=== PATIENT | female | born 1990 | race Caucasian/White ===

== ENCOUNTER 2019-09-09 11:01 | Emergency (ER) | payer OTHER ==
[~2019-09-09] VITALS: Ht 170.2 cm; Wt 85.7 kg
[2019-09-09 11:20] VITALS: BP 113/71
--- NOTE | 2019-09-09 12:41 | NUR ---
PT AMBULATED TO BED 12
--- NOTE | 2019-09-09 12:54 | NUR ---
29 Y/O F C/O LOWER ABDOMEN PAIN 5/10 WITH VAGINAL BLEEDING, 5-6 PADS DAY, X 3 WEEKS. PT STATES SHE HAD AN IUD PLACED X 4 WEEKS AGO, SINCE HAS BEEN EXPERIENCING BLEEDING X 3 WEEKS. PT INFORMED HER MD, ADVISED HER TO COME INTO THE ED IF BLEEDING DID NOT STOP. PT POSITIONED FOR COMFORT, SIDE RAIL X [address] ALLERGIES: AMITRYPTALINE
--- NOTE | 2019-09-09 13:05 | NUR ---
CERTIFIED SURGICAL ASSISTANT AT BEDSIDE OBTAINING ORDERED LAB WORK.
--- NOTE | 2019-09-09 13:08 | NUR ---
TRAINING AND DEVELOPMENT MANAGER AT BEDSIDE PERFORMING ORDERED TEST.
[2019-09-09 13:11] LABS: BASOPHILS # (AUTO) 0.1 K/uL (0.00-0.22); EOSINOPHILS # (AUTO) 0.2 K/uL (0-0.4); HEMATOCRIT 40.8 % (36-48); HEMOGLOBIN 12.8 g/dL (12.0-16.0); LYMPHOCYTES # (AUTO) 2.3 K/uL (2.5-16.5); LYMPHOCYTES % (AUTO) 39.1 % (20.5-51.1); MEAN CORPUSCULAR HEMOGLOBIN 26 pg (27-31); MEAN CORPUSCULAR HGB CONC 31 g/dL (33-37); MEAN CORPUSCULAR VOLUME 83.3 fL (80-94); MONOCYTES # (AUTO) 0.5 K/uL (0.8-1.0); MONOCYTES % (AUTO) 8.2 % (1.7-9.3); NEUTROPHILS # (AUTO) 2.8 K/uL (1.8-7.7); NEUTROPHILS % (AUTO) 48.7 % (42.2-75.2); PLATELET COUNT (AUTO) 207 K/uL (140-450); RED CELL DISTRIBUTION WIDTH 15.7 % (11.6-13.7); WHITE BLOOD COUNT (AUTO) 5.8 K/uL (4.8-10.8)
[2019-09-09 13:21] LABS: APPEARANCE,URINE CLEAR (CLEAR); BILIRUBIN,URINE NEGATIVE (NEGATIVE); BLOOD, URINE NEGATIVE (NEGATIVE); COLOR,URINE YELLOW (YELLOW); LEUKOCYTE ESTERASE ,URINE NEGATIVE (NEGATIVE); NITRITE, URINE NEGATIVE (NEGATIVE); UGLUCOSE NEGATIVE (NEGATIVE)
[2019-09-09 13:25] LABS: ALBUMIN 3.6 g/dL (3.4-5.0); ANION GAP 10.5 (8-16); CARBON DIOXIDE 30.1 mmol/L (21-32); CREATININE 0.8 mg/dL (0.6-1.3); POTASSIUM 3.6 mmol/L (3.5-5.1); TOTAL BILIRUBIN 0.3 mg/dL (0.0-1.0)
[2019-09-09 14:54] VITALS: BP 113/71
== END 2019-09-09 14:58 | disposition home or self-care (01) ==
LOC: MED 11:01
DX: N83.201 Unspecified ovarian cyst, right side (principal); N93.9 Abnormal uterine and vaginal bleeding, unspecified; R10.9 Unspecified abdominal pain; J45.909 Unspecified asthma, uncomplicated; Z98.890 Other specified postprocedural states; Z88.8 Allergy status to other drugs, medicaments and biological substances
CPT/HCPCS: 36415; 76856; 80053; 81003; 81025; 85025; 93976; 99284; Q0092

== ENCOUNTER 2020-05-08 20:45 | Emergency (ER) | payer OTHER ==
[~2020-05-08] VITALS: Ht 172.7 cm; Wt 82.6 kg
[2020-05-08 21:15] VITALS: BP 119/51
[2020-05-08] MEDS ORDERED: ALBUTEROL SULFATE/IPRATROPIU 3 ML SOL IH ONE (21:35)
[2020-05-08 23:20] VITALS: BP 120/54
== END 2020-05-08 23:20 | disposition home or self-care (01) ==
LOC: MED 20:45
DX: J45.901 Unspecified asthma with (acute) exacerbation (principal); F41.9 Anxiety disorder, unspecified; Z88.8 Allergy status to other drugs, medicaments and biological substances; Z20.828 Contact with and (suspected) exposure to other viral communicable diseases
CPT/HCPCS: 71045; 99284; Q0092; U0003; 94640

== ENCOUNTER 2021-01-20 13:46 | Emergency (ER) | payer OTHER ==
[~2021-01-20] VITALS: Ht 172.7 cm; Wt 80.7 kg
[2021-01-20 13:58] VITALS: BP 121/72
--- NOTE | 2021-01-20 14:22 | NUR ---
PATIENT AMBULATED TO BED 11.
--- NOTE | 2021-01-20 14:23 | NUR ---
Patient is a 31 y/o female c/o head pain s/p fall today. Patient also c/o dizziness and blurry vision but states that she wears glasses that she does not have on. Pain is 9/10 and sharp. Patient denies n/v/d, abdominal pain, hematuria, or blood in stool. Patient denies sick contacts, covid-19 exposure, recent travel or being vaccinated against Covid-19. PMH: ASTHMA, HYPERTHYROID, ENDOMETRIOSIS, ANXIETY Allergies: Amitriptyline Rx: denies
--- NOTE | 2021-01-20 14:24 | NUR ---
PA Wheeler at the bedside evaluating patient.
[2021-01-20] MEDS ORDERED: ONDANSETRON 4 MG/2 ML VIAL IVP ONE (14:35)
[2021-01-20] MEDS ORDERED: ACETAMINOPHEN 325 MG TAB PO ONE (14:35)
--- NOTE | 2021-01-20 14:39 | NUR ---
Patient ambulated to the restroom with a steady gait. Patient collected urine specimen.
--- NOTE | 2021-01-20 15:00 | NUR ---
Patient was picked up by air moving technician and taken to xray via wheelchair.
[2021-01-20 15:08] LABS: BASOPHILS % (AUTO) 0.9 % (0.0-2.0); EOSINOPHILS # (AUTO) 0.1 K/uL (0-0.4); EOSINOPHILS % (AUTO) 2.4 % (0.0-4.0); HEMATOCRIT 41.2 % (36-48); HEMOGLOBIN 13.5 g/dL (12.0-16.0); LYMPHOCYTES # (AUTO) 2.2 K/uL (2.5-16.5); LYMPHOCYTES % (AUTO) 43.1 % (20.5-51.1); MEAN CORPUSCULAR HEMOGLOBIN 28 pg (27-31); MEAN CORPUSCULAR HGB CONC 33 g/dL (33-37); MEAN CORPUSCULAR VOLUME 83.7 fL (80-94); MONOCYTES # (AUTO) 0.5 K/uL (0.8-1.0); MONOCYTES % (AUTO) 10.1 % (1.7-9.3); NEUTROPHILS # (AUTO) 2.2 K/uL (1.8-7.7); NEUTROPHILS % (AUTO) 43.5 % (42.2-75.2); PLATELET COUNT (AUTO) 228 K/uL (140-450); RED BLOOD CELL COUNT(AUTO) 4.93 MIL/uL (4.20-5.40); RED CELL DISTRIBUTION WIDTH 14.5 % (11.6-13.7); WHITE BLOOD COUNT (AUTO) 5.1 K/uL (4.8-10.8)
[2021-01-20 15:22] LABS: ANION GAP 14.8 (8-16); CARBON DIOXIDE 25.8 mmol/L (21-32); CREATININE 0.9 mg/dL (0.6-1.3); POTASSIUM 3.6 mmol/L (3.5-5.1)
--- NOTE | 2021-01-20 15:29 | NUR ---
ISABELLA Wheeler notified that patient c/o "a lot of pain" at IV site. Per ISABELLA, okay to d/c IV and give patient Zofran ODT.
[2021-01-20] MEDS ORDERED: ONDANSETRON 4 MG ODT PO ONE (15:30)
--- NOTE | 2021-01-20 15:33 | NUR ---
ISABELLA Wheeler at the bedside re-evaluating patient.
[2021-01-20 15:35] LABS: ALBUMIN 3.8 g/dL (3.4-5.0); TOTAL BILIRUBIN 0.6 mg/dL (0.0-1.0)
[2021-01-20] MEDS ORDERED: ACET-10509 PO (15:37)
[2021-01-20 15:50] VITALS: BP 121/72
== END 2021-01-20 15:50 | disposition home or self-care (01) ==
LOC: MED 13:46
DX: S09.90XA Unspecified injury of head, initial encounter (principal); R55 Syncope and collapse; F41.9 Anxiety disorder, unspecified; J45.909 Unspecified asthma, uncomplicated; Z79.899 Other long term (current) drug therapy; Z88.8 Allergy status to other drugs, medicaments and biological substances; X58.XXXA Exposure to other specified factors, initial encounter; Y93.89 Activity, other specified; Y92.89 Other specified places as the place of occurrence of the external cause; Y99.8 Other external cause status
CPT/HCPCS: 36415; 70450; 71045; 80053; 81002; 81025; 85025; 93005; 99285; J2405; Q0162

== ENCOUNTER 2021-03-29 23:42 | Emergency (ER) | payer OTHER ==
[~2021-03-29] VITALS: Ht 172.7 cm; Wt 79.8 kg
[~2021-03-29 23:42] MED LIST: ACET-10509 PO
[2021-03-30 00:15] VITALS: BP 122/77
[2021-03-30] MEDS ORDERED: ACETAMINOPHEN EXTRA STRENGTH 500 MG TAB PO ONE (01:10)
[2021-03-30] MEDS ORDERED: IBUPROFEN 600 MG TAB PO ONE (01:10)
[2021-03-30 02:25] VITALS: BP 114/79
== END 2021-03-30 02:32 | disposition home or self-care (01) ==
LOC: MED 23:42
DX: R07.81 Pleurodynia (principal); R53.83 Other fatigue; R42 Dizziness and giddiness; R50.9 Fever, unspecified
CPT/HCPCS: 71045; 93005; 99283